=== PATIENT | female | born 2000 | race Caucasian/White ===

== ENCOUNTER 2020-09-15 15:27 | Inpatient (IN) ==
[2020-09-15 14:40] LABS: Basophils # 0.1 K/mcL (0.0-0.2); Basophils % 0.7 %; Eosinophils # 0.1 K/mcL (0.0-0.6); Eosinophils % 1.4 %; Hematocrit 34.2 % (35.3-44.9); Hemoglobin 11.7 g/dL (11.5-15.4); Immature Granulocytes % 0.6 % (0-4); Lymphocytes # 1.8 K/mcL (0.6-4.6); Lymphocytes % 20.7 %; Mean Corpuscular HGB Conc 34.2 g/dL (31.6-35.5); Mean Corpuscular Hemoglobin 30.5 pg (28.0-33.3); Mean Corpuscular Volume 89.1 fL (83.0-100.0); Mean Platelet Volume 11.4 fL (9.4-12.4); Monocytes # 0.6 K/mcL (0.0-1.3); Monocytes % 7.5 %; Neutrophils # 5.9 K/mcL (1.6-8.9); Platelet Count 264 K/mcL (140-400); Red Blood Count 3.84 M/mcL (3.82-4.97); Red Cell Distribution Width 14.6 % (11.5-14.5); Segmented Neutrophils % 69.1 %; White Blood Count 8.5 K/mcL (4.3-11.1)
[2020-09-15 15:06] LABS: Creatinine,Urine 224 mg/dL; Protein/Creatinine Ratio,Urine 0.63 mg/mg (0.00-0.20)
[2020-09-15 15:15] LABS: Alanine Aminotransferase 10 Units/L (7-52); Aspartate Amino Transferase 16 Units/L (13-39); BUN/Creatinine Ratio 21 (6-26); Blood Urea Nitrogen 10 mg/dL (6-20); Lactate Dehydrogenase 162 Units/L (140-271); Uric Acid 4.3 mg/dL (2.3-7.6); eGFR For African Americans > 60 (> 60); eGFR For Non-African Americans > 60 (> 60)
[2020-09-15] MEDS ORDERED: Ringers Solution, Lactated 1,000 ML ONE (15:39)
[2020-09-15] MEDS ORDERED: Famotidine 20 MG/2 ML VIAL IVP PRN (16:12)
[2020-09-15] MEDS ORDERED: *HR* Labetalol 20 MG/4 ML SYRINGE IVP ONE (16:12)
[2020-09-15] MEDS ORDERED: Metoclopramide 10 MG/2 ML VIAL IVP PRN (16:12)
[2020-09-15] MEDS ORDERED: Naloxone 0.4 MG/ML INJ IVP PRN (16:12)
[2020-09-15] MEDS ORDERED: Calcium Gluconate 1,000 MG/10 ML VIAL ONE (16:13)
[2020-09-15] MEDS ORDERED: Calcium Gluconate 1,000 MG/10 ML VIAL IVP PRN (16:15)
[2020-09-15] MEDS ORDERED: 0.9 % Sodium Chloride 1,000 ML IVC SCH (16:15)
[2020-09-15] MEDS ORDERED: *HR* Labetalol 20 MG/4 ML SYRINGE IVP PRN (16:15)
[2020-09-15 16:37] LABS: Amphetamine Screen,Urine Negative ng/mL (Cutoff=1000); Barbiturate Screen,Urine Negative ng/mL (Cutoff=200); Benzodiazepines Screen,Urine Negative ng/mL (Cutoff=200); Cannabinoid Screen,Urine Negative ng/mL (Cutoff = 50); Cocaine Screen,Urine Negative ng/mL (Cutoff= 300); Opiate Screen,Urine Negative ng/mL (Cutoff=300); Phencyclidine Screen,Urine Negative ng/mL (Cutoff=25)
[2020-09-15] MEDS: Magnesium Sulf 20 gm/SW 500mL 20 GM/500 ML IV.SOLN IVC SCH (16:59)
[2020-09-15 17:19] LABS: Influenza A PCR Negative (Negative); Influenza B PCR Negative (Negative); Resp. Syncytial Virus PCR Negative (Negative)
[2020-09-15] MEDS: miSOPROStoL 25 MCG TABLET PO PRN ×2 (17:26→21:31)
[2020-09-15] MEDS ORDERED: EPHEDrine 50 MG/ML VIAL IVP PRN (17:30)
[2020-09-15] MEDS ORDERED: Epidural Premix (fent/bupiv) 110 ML EP SCH (17:30)
[2020-09-15] MEDS ORDERED: *HR* FentaNYL (PF) 100 MCG/2 ML VIAL EP ONE (17:30)
[2020-09-15] MEDS ORDERED: *HR* FentaNYL (PF) 100 MCG/2 ML VIAL ONE (17:33)
[2020-09-15 17:47] LABS: SARS-CoV-2 by PCR (In House) Negative (Negative)
[2020-09-15] MEDS: Nicotine 21 MG PATCH.TD24 TD SCH (21:32)
[2020-09-16] MEDS ORDERED: miSOPROStoL 25 MCG TABLET PO ONE ×2 (01:30→05:44)
[2020-09-16] MEDS: Magnesium Sulf 20 gm/SW 500mL 20 GM/500 ML IV.SOLN IVC SCH ×2 (03:40→13:37)
[2020-09-16] MEDS ORDERED: Ringers Solution, Lactated 1,000 ML ONE (05:12)
[2020-09-16] MEDS: Ringers Solution, Lactated 1,000 ML IVC SCH ×3 (05:31→18:57)
[2020-09-16] MEDS ORDERED: Oxytocin 20 units/ LR 1000 mL 20 UNIT/1,000 ML BAG IVC SCH (09:15)
[2020-09-16] MEDS ORDERED: Oxytocin 20 units/ LR 1000 mL 20 UNIT/1,000 ML BAG IVC ONE (09:16)
[2020-09-16] MEDS: *HR* Nalbuphine 10 MG/ML AMPUL IV PRN ×2 (10:31→13:02)
[2020-09-16] MEDS ORDERED: Ropivacaine/PF 0.2% 20 ML VIAL EP ONE (17:07)
[2020-09-16] MEDS ORDERED: *HR* FentaNYL (PF) 100 MCG/2 ML VIAL ONE (17:15)
[2020-09-16] MEDS ORDERED: Ropivacaine/PF 0.2% 20 ML VIAL ONE (17:15)
[2020-09-16] MEDS: Nicotine 21 MG PATCH.TD24 TD SCH (21:32)
[2020-09-16] MEDS ORDERED: Lidocaine 1% 20 ML MDV ONE (22:28)
[2020-09-16] MEDS ORDERED: Rho Immune Globulin 1,500 UNIT SYRINGE IM PRN (23:33)
[2020-09-16] MEDS ORDERED: Lanolin 7 G OINT...G. TP PRN (23:33)
[2020-09-16] MEDS ORDERED: Benzocaine/Menthol 56 GM AEROSOL SPRAY TP PRN (23:33)
[2020-09-17] MEDS: Ibuprofen 600 MG TABLET PO SCH ×4 (00:45→18:19)
[2020-09-17] MEDS: Oxytocin 20 units/ LR 1000 mL 20 UNIT/1,000 ML BAG IVC SCH ×2 (02:15→05:35)
[2020-09-17] MEDS: Magnesium Sulf 20 gm/SW 500mL 20 GM/500 ML IV.SOLN IVC SCH ×2 (02:15→17:58)
[2020-09-17] MEDS: *HR* OxyCODONE Immed Rel 5 MG TABLET PO PRN ×2 (03:17→09:44)
[2020-09-17 05:19] LABS: Basophils % 0.2 %; Eosinophils % 0.1 %; Hematocrit 30.7 % (35.3-44.9); Hemoglobin 10.6 g/dL (11.5-15.4); Immature Granulocytes % 0.4 % (0-4); Lymphocytes # 1.2 K/mcL (0.6-4.6); Lymphocytes % 8.9 %; Mean Corpuscular HGB Conc 34.5 g/dL (31.6-35.5); Mean Corpuscular Hemoglobin 30.8 pg (28.0-33.3); Mean Corpuscular Volume 89.2 fL (83.0-100.0); Mean Platelet Volume 11.3 fL (9.4-12.4); Monocytes # 0.8 K/mcL (0.0-1.3); Monocytes % 5.9 %; Neutrophils # 11.6 K/mcL (1.6-8.9); Platelet Count 233 K/mcL (140-400); Red Blood Count 3.44 M/mcL (3.82-4.97); Segmented Neutrophils % 84.5 %
[2020-09-17 05:23] LABS: White Blood Count 13.7 K/mcL (4.3-11.1)
[2020-09-17 05:34] LABS: Alanine Aminotransferase 8 Units/L (7-52); Aspartate Amino Transferase 22 Units/L (13-39); BUN/Creatinine Ratio 14 (6-26); Blood Urea Nitrogen 6 mg/dL (6-20); Lactate Dehydrogenase 286 Units/L (140-271); eGFR For African Americans > 60 (> 60); eGFR For Non-African Americans > 60 (> 60)
[2020-09-17] MEDS: Prenatal Vit/FA 1 EACH TABLET PO SCH (09:46)
[2020-09-18] MEDS: Ibuprofen 600 MG TABLET PO SCH ×2 (00:48→06:22)
[2020-09-18] MEDS: *HR* OxyCODONE Immed Rel 5 MG TABLET PO PRN (04:36)
[2020-09-18] MEDS: Prenatal Vit/FA 1 EACH TABLET PO SCH (07:44)
[2020-09-18 07:47] VITALS: BP 150/94
== END 2020-09-18 11:01 | disposition home or self-care (01) | DRG 560 ==
LOC: 1NENULAB → 1NENUOBS 09-17 02:14
PROVIDERS: ADMIT Obstetrics & Gynecology; ATTEND Obstetrics & Gynecology